=== PATIENT | female | born 1965 | race American Indian/Alaskan Native ===

== ENCOUNTER 2018-02-10 06:51 | Day surgery (SDC) | payer OTHER ==
[~2018-02-10 06:51] MED LIST: Dextrose 5%-0.45% NaCl 1,000 ML IV SCH; Midazolam 1 MG/ML 2 ML SDV ONE; Sodium Chloride 0.9% 10 ML Syringe FLUSH PRN; fentaNYL 100 MCG/2 ML SDV ONE
[2018-02-10] MEDS ORDERED: fentaNYL 100 MCG/2 ML SDV IV ONE ×3 (06:52→07:49)
[2018-02-10] MEDS ORDERED: Midazolam 1 MG/ML 2 ML SDV IV ONE ×3 (06:52→07:51)
--- NOTE | 2018-02-10 10:47 | OR ---
DATE: 02/10/2018 PROCEDURES: Esophagogastroduodenoscopy and multiple pinch biopsies. INSTRUMENT USED: GIF-H180 Olympus video panendoscope. PREMEDICATIONS: No oral topical anesthesia used. Fentanyl 100 mcg intravenous, Versed 2 mg intravenous. The procedure was done under pulse oximetry, BP recording, and classroom monitor. INDICATION: The patient with persistent multiple abdominal symptoms; iron- deficiency anemia, unexplained; and not responsive to medical measures, on high- dose PPI. DESCRIPTION OF PROCEDURE: Esophagogastroduodenoscopy is performed for detection of any active erosive lesions. Lemus esophagus and/or malignancy also under consideration. H. pylori status to be determined. Small bowel biopsies to be obtained for celiac disease if indicated. Endoscopic hemostasis therapy if needed. The scope was passed with ease. Adequate visualization of the esophagus was made from proximal to distal areas. No upper esophageal lesions identified. No distal esophageal stricture. No uphill or downhill esophageal varices. No Radha-Lizarraga tear. No evidence of erosive esophagitis by [place] criteria. No esophageal polyp or tumor mass identified. Sliding hiatal hernia was noted. No proximal gastric varices noted. Gastric fundus examination by retroflexion showed no polypoid lesions. No gastric ulcer, malignant mass, or vascular ectasia identified. Duodenal bulb showed no ulcer. Visualized second part of the duodenum was unremarkable. Multiple pinch biopsies, 4 in number, were taken from different areas of the second part of the duodenum; and tissues were obtained from the duodenal bulb at 9 o'clock and 12 o'clock positions and sent for any histopathologic evidence of celiac disease. Multiple pinch biopsies were taken from the gastric antrum and proximal body and sent for PyloriTek test for H. pylori and histopathology. No bleeding was noted from any of the visualized areas at the completion of examination. Photographs were taken of the duodenal bulb, gastric antrum, fundus, and distal esophagus. IMPRESSION: Sliding hiatal hernia. The patient tolerated the procedure well. [facility] /[id number]
--- NOTE | 2018-02-10 11:50 | LETTER ---
02/10/2018 Ramonita Cullen MD [facility] [address] [place] [address] RE: NATHALY STU PINZON : [address] Cullen: Ms. Stu Pinzon Bernardinoteo had esophagogastroduodenoscopy done this morning and she tolerated the procedure well. I herewith send a copy of the endoscopy note and photographs for your review. Thank you, Sincerely, [facility] /[id number]
== END 2018-02-10 10:03 | disposition home or self-care (01) ==
LOC: DL.ENDO 06:51
PROVIDERS: ATTEND Internal Medicine Gastroenterology
DX: R10.9 Unspecified abdominal pain (principal); D50.9 Iron deficiency anemia, unspecified; K44.9 Diaphragmatic hernia without obstruction or gangrene; E66.09 Other obesity due to excess calories; Z88.5 Allergy status to narcotic agent; Z91.14 Patient's other noncompliance with medication regimen
CPT/HCPCS: 43239; 81025; 87077; J2250; J3010; J7042

== ENCOUNTER 2018-02-13 05:51 | Day surgery (SDC) | payer OTHER ==
[2018-02-13] MEDS ORDERED: Dextrose 5%-0.45% NaCl 1,000 ML IV SCH (06:00)
[2018-02-13] MEDS ORDERED: Sodium Chloride 0.9% 10 ML Syringe FLUSH PRN (06:00)
[2018-02-13] MEDS ORDERED: fentaNYL 100 MCG/2 ML SDV ONE (06:12)
[2018-02-13] MEDS ORDERED: Midazolam 1 MG/ML 2 ML SDV ONE (06:12)
[2018-02-13] MEDS ORDERED: fentaNYL 100 MCG/2 ML SDV IV ONE ×4 (07:24→07:43)
[2018-02-13] MEDS ORDERED: Midazolam 1 MG/ML 2 ML SDV IV ONE ×6 (07:25→07:40)
--- NOTE | 2018-02-13 14:50 | OR ---
DATE: 02/13/2018 PROCEDURES: Colonoscopy, NBI, cold snare polypectomy, and multiple pinch biopsies. INSTRUMENT USED: PCF-H180 [place] Olympus video colonoscope. PREMEDICATIONS: Fentanyl 150 mcg intravenous, Versed 4 mg intravenous. Nasal O2 cannula. The procedure was done under pulse oximetry, BP recording, and light fixture servicer. INDICATION: The patient with unexplained iron-deficiency anemia. Colonoscopic examination is done for detection of any polypoid lesions and removal, endoscopic hemostasis therapy if needed. DESCRIPTION OF PROCEDURE: Initial rectal exam was unremarkable. Limited rigid anoscopic examination was normal. The colonoscope was passed with ease. Photographs were taken of the rectum showing benign, 3-mm sized polyp and also couple of large sessile polypoid folds. NBI views were obtained, numerous pinch biopsies were obtained from the sessile polypoid areas and sent for histopathology. Scattered diverticula were noted in the distal left colon along with some deformity. The scope was passed with ease up to the ileocecal area. Photographs were taken of the normal-appearing cecum identified by landmarks of appendiceal orifice and double-bulged ileocecal folds. No bleeding was noted from any of the visualized areas at the commencement of the examination. There was significant amount of fecal material that had to be aspirated clear. The bowel preparation was found to be adequate. No stricture, no vascular ectasia, no large isolated ulcerations seen. No evidence of diffuse inflammatory bowel disease in the form of friability, contact bleeding, or ulcerations. Probing the proximal sides of folds and flexures using adequate distention and clearing up the stool material, withdrawal of the scope was made. [id number] time over 6 minutes. No bleeding was noted from any of the visualized areas at the completion of the examination. IMPRESSION: Rectal polyps. The patient tolerated the procedure well. [facility] /[id number]
--- NOTE | 2018-02-14 07:03 | LETTER ---
02/13/[address] [facility] [address] [place] [address] RE: PELON NICHOLE STU ALBERTA : [address] Cullen: Ms. Stu Galaviz Pelon Nichole had colonoscopic examination done this morning and she tolerated the procedure well. I herewith send a copy of the endoscopy note and photographs for your review. Thank you. Sincerely, [facility] /[id number]
== END 2018-02-13 09:40 | disposition home or self-care (01) ==
LOC: DL.ENDO 05:51
PROVIDERS: ATTEND Internal Medicine Gastroenterology
DX: D50.9 Iron deficiency anemia, unspecified (principal); K62.1 Rectal polyp; K57.30 Diverticulosis of large intestine without perforation or abscess without bleeding; E66.09 Other obesity due to excess calories; Z80.0 Family history of malignant neoplasm of digestive organs; Z88.5 Allergy status to narcotic agent
CPT/HCPCS: 45380; J7042; J2250; J3010

== ENCOUNTER 2019-12-19 20:45 | Emergency (ER) | payer BC, OTHER ==
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
[2019-12-19] MEDS ORDERED: Iopamidol 612 MG/ML 100 ML Bottle IVPUSH ONE (21:33)
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
[2019-12-19 21:36] LABS: CHLORIDE,CL 102 mmol/L (98-107)
[2019-12-19 21:37] LABS: ANION GAP 22.6 mEq/L (7-13); SODIUM,NA 141 mmol/L (136-145)
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
== END 2019-12-19 22:05 ==
LOC: DL.ED 20:45 → MERGE 20:45 → DL.ED 22:05
DX: S20.311A Abrasion of right front wall of thorax, initial encounter (principal); S00.01XA Abrasion of scalp, initial encounter; M25.571 Pain in right ankle and joints of right foot; M54.2 Cervicalgia; F10.129 Alcohol abuse with intoxication, unspecified; R40.4 Transient alteration of awareness; I25.2 Old myocardial infarction; Y90.8 Blood alcohol level of 240 mg/100 ml or more; Z88.5 Allergy status to narcotic agent; V86.59XA Driver of other special all-terrain or other off-road motor vehicle injured in nontraffic accident, initial encounter
CPT/HCPCS: 36415; 70450; 71260; 72125; 72128; 72131; 74177; 80053; 80305; 80307; 81003; 82150; 82962; 83690; 85025; 85610; 86850; 86900; 86901; 94762; 99285; Q9967

== ENCOUNTER 2019-12-22 21:57 | Emergency (ER) | payer BC, OTHER ==
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
[2019-12-22] MEDS ORDERED: Acetaminophen/HYDROcodone 325-5 MG Tab PO ONE (23:29)
[2019-12-22] MEDS ORDERED: Metoclopramide 10 MG Tab PO ONE (23:30)
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
== END 2019-12-22 23:36 | disposition home or self-care (01) ==
LOC: DL.ED 21:57
DX: S06.0X0D Concussion without loss of consciousness, subsequent encounter (principal); K21.9 Gastro-esophageal reflux disease without esophagitis; E66.9 Obesity, unspecified; Z68.31 Body mass index [BMI] 31.0-31.9, adult; Z88.5 Allergy status to narcotic agent; Z79.899 Other long term (current) drug therapy; V86.99XD Unspecified occupant of other special all-terrain or other off-road motor vehicle injured in nontraffic accident, subsequent encounter
CPT/HCPCS: 70450; 99284; A9270

== ENCOUNTER 2020-05-17 00:17 | Emergency (ER) | payer BC, OTHER ==
[2020-05-17] MEDS ORDERED: Aspirin 81 MG Tab.Chew PO ONE (00:50)
--- NOTE | 2020-05-17 00:51 | EDM.PDOC ---
ED HPI GENERAL MEDICAL PROBLEM - General Chief Complaint: Chest Pain Stated Complaint: CHEST PAIN Time Seen by Provider: 05/17/20 00:25 Source of Information: Reports: Patient History Limitations: Reports: No Limitations - History of Present Illness INITIAL COMMENTS - FREE TEXT/NARRATIVE: c/o sudden onset left chest pain worse with deep breathing, sharp worsens with movement. No recent fever chills or cough. Remote hx GA and CVA. Hx some ETOH use admits couple beers tonight. No palpitations. No nausea or vomiting. Left Upper Chest Pain Score (Numeric/FACES): 10 - Related Data Allergies Allergy/AdvReac Type Severity Reaction Status Date / Time codeine Allergy Other Verified 05/17/20 00:30 lactose AdvReac Diarrhea Verified 05/17/20 00:30 MUSHROOMS Allergy Intermediate HIVES, Uncoded 05/17/20 00:30 SWELLING OF THROAT Home Meds: Home Meds Acetaminophen 325 mg PO DAILY 02/09/18 [History] Calcium Carbonate/Vitamin D3 [Calcium 600 + Vit D Tablet] 1 each PO DAILY 02/09/18 [History] Ibuprofen 200 - 800 mg PO ASDIRECTED 02/09/18 [History] Ranitidine [Zantac] 300 mg PO ASDIRECTED 02/09/18 [History] rOPINIRole [Requip] 1 mg PO BEDTIME 02/09/18 [History] Past Medical History - Past Health History Medical/Surgical History: Denies Medical/Surgical History HEENT History: Reports: Impaired Vision, Other (See Below) Other HEENT History: UPPER AND LOWER DENTURE PLATES Cardiovascular History: Reports: GA Respiratory History: Reports: None Gastrointestinal History: Reports: GERD, Other (See Below) Other Gastrointestinal History: "heartburn" per S chart Genitourinary History: Reports: None 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: Musculoskeletal History: Reports: Back Pain, Chronic Neurological History: Reports: CVA, Other (See Below) Other Neuro History: restless legs Psychiatric History: Reports: None Endocrine/Metabolic History: Reports: Obesity/BMI 30+ Hematologic History: Reports: Anemia, Iron Deficiency Immunologic History: Reports: None Oncologic (Cancer) History: Reports: None Dermatologic History: Reports: None - Infectious Disease History Infectious Disease History: Reports: None - Past Surgical History Head Surgeries/Procedures: Reports: None HEENT Surgical History: Reports: Oral Surgery Cardiovascular Surgical History: Reports: None Respiratory Surgical History: Reports: None GI Surgical History: Reports: EGD Female Surgical History: Reports: Section Endocrine Surgical History: Reports: None Neurological Surgical History: Reports: None Musculoskeletal Surgical History: Reports: None Oncologic Surgical History: Reports: None Dermatological Surgical History: Reports: None Social & Family History - Family History Family Medical History: No Pertinent Family History HEENT: Reports: None - Tobacco Use Tobacco Use Status *Q: Never Tobacco User Second Hand Smoke Exposure: No - Caffeine Use Caffeine Use: Reports: Coffee, Soda Other Caffeine Use: 4 cups coffee every AM - Recreational Drug Use Recreational Drug Use: No ED ROS GENERAL - Review of Systems Review Of Systems: Comprehensive ROS is negative, except as noted in HPI. ED EXAM, GENERAL - Physical Exam Exam: See Below Exam Limited By: No Limitations General Appearance: Alert, Anxious, Moderate Distress Eye Exam: Bilateral Eye: EOMI Ears: Normal External Exam, Hearing Grossly Normal Nose: Normal Inspection Neck: Normal Inspection Respiratory/Chest: No Respiratory Distress, Lungs Clear, Normal Breath Sounds. No: Chest Non-Tender (point tenderness mid clavicular 3rd ICS) Cardiovascular: Normal Peripheral Pulses, Regular Rate, Rhythm GI/Abdominal: Normal Bowel Sounds, Soft, Non-Tender Extremities: Normal Inspection Neurological: Alert, Oriented, Normal Cognition Psychiatric: Anxious Skin Exam: Warm, Dry, Intact Course - Vital Signs Last Recorded V/S: Last Vital Signs Temp 97.9 F 05/17/20 00:26 Pulse 66 05/17/20 00:26 Resp 24 H 05/17/20 00:26 BP 122/85 05/17/20 00:26 Pulse Ox 99 05/17/20 00:26 - Orders/Labs/Meds Orders: Active Orders 24 hr Category Date Time Status EKG Documentation Completion [RC] URGENT Care 05/17/20 00:37 Active EKG Documentation Completion [RC] URGENT Care 05/17/20 04:45 Active DRUG SCREEN URINE BIORAD [URCHEM] Stat Lab 05/17/20 01:02 Ordered UA RFX ЮЛИЯ AND CULT IF INDIC [URIN] Urgent Lab 05/17/20 01:02 Ordered Labs: Laboratory Tests 05/17/20 05/17/20 05/17/20 Range/Units 00:45 00:45 00:45 WBC 7.8 (5.0-10.0) 10^3/uL RBC 4.64 (4.2-5.4) 10^6/uL Hgb 12.3 D (12.0-16.0) g/dL Hct 37.3 (37.0-47.0) % MCV 80.4 (80-100) fL MCH 26.5 L (27.0-34.0) pg MCHC 33.0 (33.0-35.0) g/dL Plt Count 261 (150-450) 10^3/uL Neut % (Auto) 45.0 (42.2-75.2) % Lymph % (Auto) 36.0 (20.5-50.1) % [place] % (Auto) 10.0 H (2-8) % Eos % (Auto) 8.5 H (1.0-3.0) % Baso % (Auto) 0.5 (0.0-1.0) % PT 10.4 (9.0-12.0) SEC INR 1.1 (0.9-1.2) D-Dimer, Quantitative 409 H (0-400) ng/mL Sodium 135 L (136-145) mmol/L Potassium 3.6 (3.5-5.1) mmol/L Chloride 97 L (98-107) mmol/L Carbon Dioxide 20 L (21-32) mmol/L Anion Gap 21.6 H (7-13) mEq/L BUN 6 L (7-18) mg/dL Creatinine 0.63 (0.55-1.02) mg/dL Est Cr Clr Drug Dosing TNP Estimated GFR (MDRD) > 60 BUN/Creatinine Ratio 9.5 (No establ ref range) Glucose 85 (74-99) mg/dL Lactic Acid (0.4-2.0) mmol/L Calcium 9.5 (8.5-10.1) mg/dL Total Bilirubin 0.5 (0.2-1.0) mg/dL AST 96 H (15-37) U/L ALT 95 H (14-59) U/L Alkaline Phosphatase 111 (46-116) U/L Troponin I < 0.017 (0.000-0.056) ng/mL C-Reactive Protein 0.3 (0.0-0.9) mg/dL Total Protein 7.7 (6.4-8.2) g/dL Albumin 3.8 (3.4-5.0) g/dL Globulin 3.9 Albumin/Globulin Ratio 1.0 Ethyl Alcohol (0) mg/dL 05/17/20 05/17/20 05/17/20 Range/Units 00:45 00:45 04:45 WBC (5.0-10.0) 10^3/uL RBC (4.2-5.4) 10^6/uL Hgb (12.0-16.0) g/dL Hct (37.0-47.0) % MCV (80-100) fL MCH (27.0-34.0) pg MCHC (33.0-35.0) g/dL Plt Count (150-450) 10^3/uL Neut % (Auto) (42.2-75.2) % Lymph % (Auto) (20.5-50.1) % [place] % (Auto) (2-8) % Eos % (Auto) (1.0-3.0) % Baso % (Auto) (0.0-1.0) % PT (9.0-12.0) SEC INR (0.9-1.2) D-Dimer, Quantitative (0-400) ng/mL Sodium (136-145) mmol/L Potassium (3.5-5.1) mmol/L Chloride (98-107) mmol/L Carbon Dioxide (21-32) mmol/L Anion Gap (7-13) mEq/L BUN (7-18) mg/dL Creatinine (0.55-1.02) mg/dL Est Cr Clr Drug Dosing Estimated GFR (MDRD) BUN/Creatinine Ratio (No establ ref range) Glucose (74-99) mg/dL Lactic Acid 2.9 H* (0.4-2.0) mmol/L Calcium (8.5-10.1) mg/dL Total Bilirubin (0.2-1.0) mg/dL AST (15-37) U/L ALT (14-59) U/L Alkaline Phosphatase (46-116) U/L Troponin I < 0.017 (0.000-0.056) ng/mL C-Reactive Protein (0.0-0.9) mg/dL Total Protein (6.4-8.2) g/dL Albumin (3.4-5.0) g/dL Globulin Albumin/Globulin Ratio Ethyl Alcohol 138 (0) mg/dL Meds: Medications Discontinued Medications Generic Name Dose Route Start Last Admin Trade Name Preston PRN Reason Stop Dose Admin Aspirin 324 mg 05/17/20 00:50 05/17/20 01:03 Aspirin PO 05/17/20 00:51 324 mg ONETIME ONE Administration Ketorolac Tromethamine 30 mg 05/17/20 01:46 05/17/20 01:51 Toradol IVPUSH 05/17/20 01:47 30 mg ONETIME ONE Administration - Re-Assessments/Exams Free Text/Narrative Re-Assessment/Exam: 05/17/20 05:31 Pain improved , resting. Lesser pain reproducible with palpation. Departure - Departure Time of Disposition: 05:23 Disposition: Home, Self-Care 01 Condition: Good Clinical Impression: Non-cardiac chest pain, Alcohol intoxication Instructions: Nonspecific Chest Pain, Adult, [id number] Forms: ED Department Discharge Additional Instructions: light activity tylenol every 4 hours as needed for discomfort humidifier in room decrease alcohol use bland diet follow up clinic next week Sepsis Event Note (ED) - Evaluation Sepsis Screening Result: No Definite Risk - Focused Exam Vital Signs: Vital Signs Temp Pulse Resp BP Pulse Ox 05/17/20 00:26 97.9 F 66 24 H 122/85 99 - My Orders Last 24 Hours: My Active Orders 05/17/20 00:37 EKG Documentation Completion [RC] URGENT 05/17/20 01:02 DRUG SCREEN URINE BIORAD [URCHEM] Stat UA RFX ЮЛИЯ AND CULT IF INDIC [URIN] Urgent 05/17/20 04:45 EKG Documentation Completion [RC] URGENT - Assessment/Plan Last 24 Hours: My Active Orders 05/17/20 00:37 EKG Documentation Completion [RC] URGENT 05/17/20 01:02 DRUG SCREEN URINE BIORAD [URCHEM] Stat UA RFX ЮЛИЯ AND CULT IF INDIC [URIN] Urgent 05/17/20 04:45 EKG Documentation Completion [RC] URGENT
--- NOTE | 2020-05-17 01:15 | CR ---
PROCEDURE INFORMATION: Exam: XR Chest, 1 View Exam date and time: 05/17/2020 1:07 AM Age: 54 years old Clinical indication: Other: Chest pain TECHNIQUE: Imaging protocol: XR of the chest Views: 1 view. COMPARISON: No relevant prior studies available. FINDINGS: Lungs: Lung volumes are low causing crowding of pulmonary vascular and interstitial markings. Allowing for this, no definite pulmonary edema is present. There is no pneumonia. Mild peribronchial cuffing is noted which could be due to bronchitis. Pleural space: Unremarkable. No pleural effusion. No pneumothorax. Heart/Mediastinum: Heart size is within the normal range. Bones/joints: Unremarkable. IMPRESSION: 1. Low lung volumes with possible mild bronchitis. No pneumonia or pulmonary edema.
[2020-05-17 01:31] LABS: ANION GAP 21.6 mEq/L (7-13); CHLORIDE,CL 97 mmol/L (98-107); SODIUM,NA 135 mmol/L (136-145)
[2020-05-17] MEDS ORDERED: Ketorolac 30 MG/ML SDV IVPUSH ONE (01:46)
== END 2020-05-17 05:33 | disposition home or self-care (01) ==
LOC: DL.ED 00:17
DX: R07.89 Other chest pain (principal); F10.129 Alcohol abuse with intoxication, unspecified; I25.2 Old myocardial infarction; E66.9 Obesity, unspecified; Y90.6 Blood alcohol level of 120-199 mg/100 ml; Z91.011 Allergy to milk products; Z91.018 Allergy to other foods; Z88.5 Allergy status to narcotic agent
CPT/HCPCS: 36415; 71045; 80053; 80307; 83605; 84484; 85025; 85379; 85610; 86140; 93005; 96374; 99283; 99285; A9270; J1885

== ENCOUNTER 2020-09-07 20:08 | Emergency (ER) | payer BC, OTHER ==
[2020-09-07] MEDS ORDERED: Succinylcholine 200 MG/10 ML MDV IV ONE (20:09)
[2020-09-07] MEDS ORDERED: Midazolam 1 MG/ML 2 ML SDV ONE (20:29)
[2020-09-07] MEDS ORDERED: fentaNYL 100 MCG/2 ML SDV ONE (20:32)
[2020-09-07] MEDS ORDERED: fentaNYL 100 MCG/2 ML SDV IVPUSH ONE (20:42)
[2020-09-07] MEDS ORDERED: Midazolam 1 MG/ML 2 ML SDV IVPUSH ONE (20:42)
[2020-09-07] MEDS ORDERED: Naloxone 2 MG/2 ML Syringe IVPUSH ONE (20:42)
--- NOTE | 2020-09-07 20:45 | CR ---
PROCEDURE INFORMATION: Exam: XR Chest Exam date and time: 09/07/2020 8:40 PM Age: 54 years old Clinical indication: Other: Tube placement; Additional info: Unresponsive TECHNIQUE: Imaging protocol: XR of the chest Views: 1 view. COMPARISON: CR Chest 1V Frontal 05/17/2020 1:07 AM FINDINGS: Tubes, catheters and devices: An endotracheal tube is present, lying with its tip 5.9 cm above the anu. The tip of the enteric tube resides in the proximal stomach. Lungs: There is moderate nonspecific prominence of the pulmonary vasculature. There is nonspecific consolidation in the left lung base. Pleural spaces: There are no pleural effusions present. Heart/Mediastinum: The heart demonstrates moderate diffuse enlargement. Bones/joints: Unremarkable IMPRESSION: 1. Cardiomegaly and pulmonary vascular prominence consistent with volume overload or congestive heart failure. 2. The enteric tube tip resides in the proximal stomach. 3. Left basilar atelectasis or pneumonia.
[2020-09-07 20:48] LABS: ANION GAP 19.6 mEq/L (7-13); CHLORIDE,CL 99 mmol/L (98-107); SODIUM,NA 138 mmol/L (136-145)
--- NOTE | 2020-09-07 20:55 | EDM.PDOC ---
ED HPI GENERAL MEDICAL PROBLEM - General Chief Complaint: Neurological Problem Stated Complaint: AMBULANCE Time Seen by Provider: 09/07/20 20:40 Source of Information: Reports: EMS History Limitations: Reports: Altered Mental Status - History of Present Illness INITIAL COMMENTS - FREE TEXT/NARRATIVE: ED via [facility] Report patient walking home with family from supper and c/o feeling dizzy slumped to ground, tried to get up then unresponsive. Emesis x 1 [employer]. No report of trauma. No prior hx recent illness. No report of seizure activity. Narcan per EMS without change GCS 4 on arrival. - Related Data Allergies Allergy/AdvReac Type Severity Reaction Status Date / Time codeine Allergy Other Verified 05/17/20 00:30 lactose AdvReac Diarrhea Verified 05/17/20 00:30 MUSHROOMS Allergy Intermediate HIVES, Uncoded 05/17/20 00:30 SWELLING OF THROAT Home Meds: Home Meds Acetaminophen 325 mg PO DAILY 02/09/18 [History] Calcium Carbonate/Vitamin D3 [Calcium 600 + Vit D Tablet] 1 each PO DAILY 02/09/18 [History] Ibuprofen 200 - 800 mg PO ASDIRECTED 02/09/18 [History] Ranitidine [Zantac] 300 mg PO ASDIRECTED 02/09/18 [History] rOPINIRole [Requip] 1 mg PO BEDTIME 02/09/18 [History] Past Medical History - Past Health History Medical/Surgical History: Denies Medical/Surgical History HEENT History: Reports: Impaired Vision, Other (See Below) Other HEENT History: UPPER AND LOWER DENTURE PLATES Cardiovascular History: Reports: NC Respiratory History: Reports: None Gastrointestinal History: Reports: GERD, Other (See Below) Other Gastrointestinal History: "heartburn" per [facility] chart Genitourinary History: Reports: None 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: Musculoskeletal History: Reports: Back Pain, Chronic Neurological History: Reports: CVA, Seizure (has not been on medication since 2008), Other (See Below) Other Neuro History: restless legs Psychiatric History: Reports: None Endocrine/Metabolic History: Reports: Obesity/BMI 30+ Hematologic History: Reports: Anemia, Iron Deficiency Immunologic History: Reports: None Oncologic (Cancer) History: Reports: None Dermatologic History: Reports: None - Infectious Disease History Infectious Disease History: Reports: None - Past Surgical History Head Surgeries/Procedures: Reports: None HEENT Surgical History: Reports: Oral Surgery Cardiovascular Surgical History: Reports: None Respiratory Surgical History: Reports: None GI Surgical History: Reports: EGD Female Surgical History: Reports: Section Endocrine Surgical History: Reports: None Neurological Surgical History: Reports: None Musculoskeletal Surgical History: Reports: None Oncologic Surgical History: Reports: None Dermatological Surgical History: Reports: None Social & Family History - Family History Family Medical History: No Pertinent Family History HEENT: Reports: None - Caffeine Use Caffeine Use: Reports: Coffee, Soda Other Caffeine Use: 4 cups coffee every AM ED ROS GENERAL - Review of Systems Review Of Systems: Unable To Obtain Reason Not Obtained: unresponsive. No family available. - Physical Exam Exam: See Below Exam Limited By: No Limitations General Appearance: Obtunded Eye Exam: Bilateral Eye: EOMI, PERRL Ears: Normal External Exam, Normal Canal, Normal TMs Nose: Normal Inspection Throat/Mouth: Normal Inspection Head Exam: Atraumatic, Normocephalic Respiratory/Chest: No Respiratory Distress, Lungs Clear, Normal Breath Sounds GI/Abdominal: Normal Bowel Sounds Neuro Exam (Abbreviated): Unresponsive Extremities: No Pedal Edema. No: Joint Swelling Skin Exam: Warm, Dry, Intact. No: Ecchymosis Course - Orders/Labs/Meds Labs: Laboratory Tests 09/07/20 09/07/20 09/07/20 Range/Units 20:18 20:20 20:20 WBC (5.0-10.0) 10^3/uL RBC (4.2-5.4) 10^6/uL Hgb (12.0-16.0) g/dL Hct (37.0-47.0) % MCV (80-100) fL MCH (27.0-34.0) pg MCHC (33.0-35.0) g/dL Plt Count (150-450) 10^3/uL Neut % (Auto) (42.2-75.2) % Lymph % (Auto) (20.5-50.1) % [place] % (Auto) (2-8) % Eos % (Auto) (1.0-3.0) % Baso % (Auto) (0.0-1.0) % Sodium (136-145) mmol/L Potassium (3.5-5.1) mmol/L Chloride (98-107) mmol/L Carbon Dioxide (21-32) mmol/L Anion Gap (7-13) mEq/L BUN (7-18) mg/dL Creatinine (0.55-1.02) mg/dL Est Cr Clr Drug Dosing Estimated GFR (MDRD) BUN/Creatinine Ratio (No establ ref range) Glucose (74-99) mg/dL POC Glucose 109 H (70-105) mg/dl Calcium (8.5-10.1) mg/dL Total Bilirubin (0.2-1.0) mg/dL AST (15-37) U/L ALT (14-59) U/L Alkaline Phosphatase (46-116) U/L Troponin I (0.000-0.056) ng/mL Total Protein (6.4-8.2) g/dL Albumin (3.4-5.0) g/dL Globulin Albumin/Globulin Ratio Urine Color Yellow (YELLOW) Urine Appearance Clear (CLEAR) Urine pH 5.5 (5.0-9.0) Ur Specific [place] 1.010 (1.005-1.030) Urine Protein Negative (NEGATIVE) Urine Glucose (UA) Negative (NEGATIVE) Urine Ketones Negative (NEGATIVE) Urine Occult Blood Trace-intact H (NEGATIVE) Urine Nitrite Negative (NEGATIVE) Urine Bilirubin Negative (NEGATIVE) Urine Urobilinogen 0.2 (0.2-1.0) mg/dL Ur Leukocyte Esterase Negative (NEGATIVE) Urine RBC Not seen /HPF Urine WBC Not seen (0-5/HPF) /HPF Ur Epithelial Cells Rare (NOT SEEN) /HPF Urine Bacteria Few (0-FEW/HPF) /HPF Urine Opiates Screen Negative (NEGATIVE) Ur Oxycodone Screen Negative (NEGATIVE) Urine Methadone Screen Negative (NEGATIVE) Ur Barbiturates Screen Negative (NEGATIVE) U Tricyclic Antidepress Negative (NEGATIVE) Ur Phencyclidine Scrn Negative (NEGATIVE) Ur Amphetamine Screen Negative (NEGATIVE) U Methamphetamines Scrn Negative (NEGATIVE) Urine MDMA Screen Negative (NEGATIVE) U Benzodiazepines Scrn Negative (NEGATIVE) Urine Cocaine Screen Negative (NEGATIVE) U Marijuana (THC) Screen Negative (NEGATIVE) Ethyl Alcohol (0) mg/dL SARS-CoV-2 RNA (DIANE) (NEGATIVE) 09/07/20 09/07/20 09/07/20 Range/Units 20:20 20:20 21:05 WBC 7.5 (5.0-10.0) 10^3/uL RBC 4.76 (4.2-5.4) 10^6/uL Hgb 12.4 (12.0-16.0) g/dL Hct 37.9 (37.0-47.0) % MCV 79.6 L (80-100) fL MCH 26.1 L (27.0-34.0) pg MCHC 32.7 L (33.0-35.0) g/dL Plt Count 267 (150-450) 10^3/uL Neut % (Auto) 38.5 L (42.2-75.2) % Lymph % (Auto) 44.0 (20.5-50.1) % [place] % (Auto) 8.5 H (2-8) % Eos % (Auto) 8.3 H (1.0-3.0) % Baso % (Auto) 0.7 (0.0-1.0) % Sodium 138 (136-145) mmol/L Potassium 3.6 (3.5-5.1) mmol/L Chloride 99 (98-107) mmol/L Carbon Dioxide 23 (21-32) mmol/L Anion Gap 19.6 H (7-13) mEq/L BUN 3 L (7-18) mg/dL Creatinine 0.66 (0.55-1.02) mg/dL Est Cr Clr Drug Dosing TNP Estimated GFR (MDRD) > 60 BUN/Creatinine Ratio 4.5 (No establ ref range) Glucose 103 H (74-99) mg/dL POC Glucose (70-105) mg/dl Calcium 8.3 L (8.5-10.1) mg/dL Total Bilirubin 0.5 (0.2-1.0) mg/dL AST 77 H (15-37) U/L ALT 92 H (14-59) U/L Alkaline Phosphatase 123 H (46-116) U/L Troponin I < 0.017 (0.000-0.056) ng/mL Total Protein 6.9 (6.4-8.2) g/dL Albumin 3.7 (3.4-5.0) g/dL Globulin 3.2 Albumin/Globulin Ratio 1.2 Urine Color (YELLOW) Urine Appearance (CLEAR) Urine pH (5.0-9.0) Ur Specific [place] (1.005-1.030) Urine Protein (NEGATIVE) Urine Glucose (UA) (NEGATIVE) Urine Ketones (NEGATIVE) Urine Occult Blood (NEGATIVE) Urine Nitrite (NEGATIVE) Urine Bilirubin (NEGATIVE) Urine Urobilinogen (0.2-1.0) mg/dL Ur Leukocyte Esterase (NEGATIVE) Urine RBC /HPF Urine WBC (0-5/HPF) /HPF Ur Epithelial Cells (NOT SEEN) /HPF Urine Bacteria (0-FEW/HPF) /HPF Urine Opiates Screen (NEGATIVE) Ur Oxycodone Screen (NEGATIVE) Urine Methadone Screen (NEGATIVE) Ur Barbiturates Screen (NEGATIVE) U Tricyclic Antidepress (NEGATIVE) Ur Phencyclidine Scrn (NEGATIVE) Ur Amphetamine Screen (NEGATIVE) U Methamphetamines Scrn (NEGATIVE) Urine MDMA Screen (NEGATIVE) U Benzodiazepines Scrn (NEGATIVE) Urine Cocaine Screen (NEGATIVE) U Marijuana (THC) Screen (NEGATIVE) Ethyl Alcohol 172 (0) mg/dL SARS-CoV-2 RNA (DIANE) Negative (NEGATIVE) Meds: Medications Discontinued Medications Generic Name Dose Route Start Last Admin Trade Name Preston PRN Reason Stop Dose Admin Fentanyl Confirm 09/07/20 20:32 09/07/20 20:33 Sublimaze Administered 09/07/20 20:33 100 mcg Dose Administration 100 mcg .ROUTE .STK-MED ONE Fentanyl 100 mcg 09/07/20 20:42 09/07/20 20:43 Sublimaze IVPUSH 09/07/20 20:43 Not Given ONETIME ONE Midazolam HCl Confirm 09/07/20 20:29 09/07/20 20:31 Versed 1 Mg/Ml Administered 09/07/20 20:30 2 mg Dose Administration 2 mg .ROUTE .STK-MED ONE Midazolam HCl 2 mg 09/07/20 20:42 09/07/20 20:43 Versed 1 Mg/Ml IVPUSH 09/07/20 20:43 Not Given ONETIME ONE Naloxone HCl 2 mg 09/07/20 20:42 09/07/20 20:43 Narcan IVPUSH 09/07/20 20:43 2 mg ONETIME ONE Administration Naloxone HCl Confirm 09/08/20 00:42 09/08/20 03:52 Narcan Administered 09/08/20 00:43 Not Given Dose 2 mg .ROUTE .STK-MED ONE - Re-Assessments/Exams Free Text/Narrative Re-Assessment/Exam: 09/08/20 LENS BLANK GAUGER here, patient intubated. 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 Dr Chadwick Baer accepting patient. CT head [employer]> HR, BP stable. No seizure type activity or posturing in ED. No response to pain. Tx via [facility] [employer]. Daughter here prior to tx. relays patient hx seizure in past . on no medication, Last seizure approximately 10 years prior. . Departure - Departure Time of Disposition: 22:10 Disposition: DC/Tfer to Acute Hospital 02 Condition: Undetermined Clinical Impression: Hx of seizure disorder, History of CVA (cerebrovascular accident), Unresponsive, Alcohol intoxication - Discharge Information *PRESCRIPTION DRUG MONITORING PROGRAM REVIEWED*: No *COPY OF PRESCRIPTION DRUG MONITORING REPORT IN PATIENT RUSTAM: No Referrals: PCP,None [Primary Care Provider] - Forms: ED Department Discharge
--- NOTE | 2020-09-07 21:28 | CT ---
PROCEDURE INFORMATION: Exam: CT Head Without Contrast Exam date and time: 09/07/2020 9:11 PM Age: 54 years old Clinical indication: Other: Fall; Additional info: Altered mental TECHNIQUE: Imaging protocol: Computed tomography of the head without contrast. Radiation optimization: All CT scans at this facility use at least one of these dose optimization techniques: automated exposure control; mA and/or kV adjustment per patient size (includes targeted exams where dose is matched to clinical indication); or iterative reconstruction. Other technique: STROKE PROTOCOL was implemented. COMPARISON: CT Head wo Cont 12/22/2019 11:01 PM FINDINGS: Brain: There is no significant midline shift. There is a subtle area of low attenuation in the left occipital pole which is similar to the prior study from December 22, 2019 and may represent mild encephalomalacia. There is no evidence of acute hemorrhage within the brain parenchyma or the subarachnoid space. There is no evidence of an acute ischemic event. Cerebral ventricles: Unremarkable Bones/joints: The skull is normal. Paranasal sinuses: The sinuses are normal. Mastoid air cells: The mastoid sinuses are normal. Orbital cavity: The orbits are normal. Soft tissues: The extracranial soft tissues are normal. IMPRESSION: 1. No acute abnormality. 2. Old subtle area of encephalomalacia in the left occipital pole. ASSESSMENT: ASPECTS ([place] Stroke Program Early CT Score) is 10.
--- NOTE | 2020-09-07 21:44 | CT ---
PROCEDURE INFORMATION: Exam: CT Cervical Spine Without Contrast Exam date and time: 09/07/2020 9:11 PM Age: 54 years old Clinical indication: Other: Fall; Additional info: Altered mental TECHNIQUE: Imaging protocol: Computed tomography images of the cervical spine without contrast. Radiation optimization: All CT scans at this facility use at least one of these dose optimization techniques: automated exposure control; mA and/or kV adjustment per patient size (includes targeted exams where dose is matched to clinical indication); or iterative reconstruction. COMPARISON: No relevant prior studies available. FINDINGS: Tubes, catheters and devices: An endotracheal tube is positioned within the tracheal air column at the level of the superior margin of the aortic arch. An orogastric tube traverses the oral cavity into the esophagus. Bones/joints: There is no evidence of acute fracture. The vertebral body heights are maintained. The facet joints are normal. Discs/Spinal canal/Neural foramina: The disc spaces are maintained. There is no significant spinal canal narrowing. There is no evidence of foraminal stenosis. Lungs: There appear to be pleural effusions layering in the dependent portion of the lung apices. Soft tissues: The extraspinous soft tissues are normal. IMPRESSION: No acute bony abnormality.
[2020-09-08] MEDS ORDERED: Naloxone 2 MG/2 ML Syringe ONE (00:42)
== END 2020-09-07 22:10 ==
LOC: DL.ED 20:08
DX: G40.909 Epilepsy, unspecified, not intractable, without status epilepticus (principal); F10.129 Alcohol abuse with intoxication, unspecified; R40.1 Stupor; I25.2 Old myocardial infarction; K21.9 Gastro-esophageal reflux disease without esophagitis; E66.9 Obesity, unspecified; Z86.73 Personal history of transient ischemic attack (TIA), and cerebral infarction without residual deficits; Y90.6 Blood alcohol level of 120-199 mg/100 ml; Z88.5 Allergy status to narcotic agent; Z91.011 Allergy to milk products; Z91.018 Allergy to other foods; Z79.899 Other long term (current) drug therapy; Z20.822 Contact with and (suspected) exposure to COVID-19
CPT/HCPCS: 31500; 36415; 43752; 51702; 70450; 71045; 72125; 80053; 80305; 80307; 81001; 82962; 84484; 85025; 87635; 96374; 99285; J0330; J2250; J2310; J3010; 99283; U0002

== ENCOUNTER 2021-08-17 01:07 | Emergency (ER) | payer BC, OTHER ==
[2021-08-16 22:59] LABS: ANION GAP 15.9 mEq/L (7-13); CHLORIDE,CL 96 mmol/L (98-107); SODIUM,NA 131 mmol/L (136-145)
[2021-08-16 23:46] LABS: AMPHETAMINES,URINE NEGATIVE (NEGATIVE); BARBITURATES,URINE NEGATIVE (NEGATIVE); BENZODIAZEPINE,URINE NEGATIVE (NEGATIVE); MDMA (ECSTASY), URINE NEGATIVE (NEGATIVE); METHADONE,URINE NEGATIVE (NEGATIVE); METHAMPHETAMINES,URINE NEGATIVE (NEGATIVE); OPIATES,URINE NEGATIVE (NEGATIVE); OXYCODONE,URINE NEGATIVE (NEGATIVE); PHENCYCLIDINE,URINE NEGATIVE (NEGATIVE); TCA,URINE NEGATIVE (NEGATIVE)
[~2021-08-17 01:07] MED LIST changes: -Dextrose 5%-0.45% NaCl 1,000 ML IV SCH; +HYDROmorphone 0.5 MG/0.5 ML Syringe IVPUSH ONE; +Iopamidol 612 MG/ML 100 ML Bottle IVPUSH ONE; +LORazepam 2 MG/ML SDV IV ONE; +LORazepam 2 MG/ML SDV ONE; +Lactated Ringers 1,000 ML IV ONE; -Midazolam 1 MG/ML 2 ML SDV ONE; +Ondansetron 4 MG/2 ML SDV IV ONE; +Ondansetron 4 MG/2 ML SDV IVPUSH ONE; -fentaNYL 100 MCG/2 ML SDV ONE; +levETIRAcetam in NaCl (iso-os) 1,500 MG in Premix Bag 1 BAG IV ONE
[2021-08-17] MEDS ORDERED: Sodium Chloride 0.9% 1,000 ML IV ONE (01:27)
== END 2021-08-17 02:36 | disposition home or self-care (01) ==
LOC: DL.ED 01:07
DX: R56.9 Unspecified convulsions (principal); F10.129 Alcohol abuse with intoxication, unspecified; I25.2 Old myocardial infarction; E66.9 Obesity, unspecified; Z68.30 Body mass index [BMI] 30.0-30.9, adult; Z86.73 Personal history of transient ischemic attack (TIA), and cerebral infarction without residual deficits; Z88.5 Allergy status to narcotic agent; Z91.011 Allergy to milk products; Z91.018 Allergy to other foods; Y90.8 Blood alcohol level of 240 mg/100 ml or more
CPT/HCPCS: 36415; 70450; 71260; 72125; 74177; 80053; 80305; 80307; 81003; 83605; 85025; 86140; 96365; 96375; 99285; J1953; J2060; J2405; J7120; Q9967; 93010; 99284

== ENCOUNTER 2021-11-26 06:20 | Inpatient (IN) | payer BC, OTHER ==
[2021-11-26] MEDS ORDERED: Ondansetron 4 MG/2 ML SDV IVPUSH ONE (06:30)
[2021-11-26] MEDS ORDERED: Sodium Chloride 0.9% 1,000 ML IV ONE (06:30)
[2021-11-26] MEDS ORDERED: HYDROmorphone 0.5 MG/0.5 ML Syringe IVPUSH ONE ×2 (06:31→07:34)
[2021-11-26 07:25] LABS: ANION GAP 20.5 mEq/L (7-13); CHLORIDE,CL 104 mmol/L (98-107); SODIUM,NA 141 mmol/L (136-145)
[2021-11-26] MEDS ORDERED: Lactated Ringers 1,000 ML IV ONE (07:32)
[2021-11-26 07:47] LABS: AMPHETAMINES,URINE NEGATIVE (NEGATIVE); BARBITURATES,URINE NEGATIVE (NEGATIVE); BENZODIAZEPINE,URINE NEGATIVE (NEGATIVE); MDMA (ECSTASY), URINE NEGATIVE (NEGATIVE); METHADONE,URINE NEGATIVE (NEGATIVE); METHAMPHETAMINES,URINE NEGATIVE (NEGATIVE); OPIATES,URINE POSITIVE (NEGATIVE); OXYCODONE,URINE NEGATIVE (NEGATIVE); PHENCYCLIDINE,URINE NEGATIVE (NEGATIVE); TCA,URINE NEGATIVE (NEGATIVE)
[2021-11-26] MEDS ORDERED: Iopamidol 612 MG/ML 100 ML Bottle IVPUSH ONE (08:00)
[2021-11-26 08:02] LABS: CORONAVIRUS COVID-19 NAA NEGATIVE (NEGATIVE)
[2021-11-26] MEDS ORDERED: Ondansetron 4 MG/2 ML SDV IVPUSH PRN (10:09)
[2021-11-26] MEDS ORDERED: Docusate Sodium 100 MG Cap PO PRN (10:09)
[2021-11-26] MEDS ORDERED: HYDROmorphone 0.5 MG/0.5 ML Syringe IVPUSH PRN (10:09)
[2021-11-26] MEDS ORDERED: Acetaminophen 325 MG Tab PO PRN (10:09)
[2021-11-26] MEDS ORDERED: LORazepam 0.5 MG Tab PO PRN (10:20)
[2021-11-26] MEDS: Acetaminophen/HYDROcodone 325-5 MG Tab PO PRN ×3 (11:08→22:04)
[2021-11-26] MEDS: Enoxaparin 30 MG/0.3 ML Syringe SUBCUT SCH (11:08)
[2021-11-26] MEDS: ClonazePAM 0.5 MG Tab PO SCH ×2 (11:08→22:03)
[2021-11-26] MEDS: Sodium Chloride 0.9% 1,000 ML IV SCH (11:15)
[2021-11-27] MEDS: Sodium Chloride 0.9% 1,000 ML IV SCH (00:48)
[2021-11-27] MEDS: Acetaminophen/HYDROcodone 325-5 MG Tab PO PRN ×2 (05:34→13:34)
[2021-11-27 06:23] LABS: ANION GAP 12.5 mEq/L (7-13); CHLORIDE,CL 108 mmol/L (98-107); SODIUM,NA 143 mmol/L (136-145)
[2021-11-27] MEDS ORDERED: Triamcinolone Acetonide 0.1% Crm 15 GM Tube TOP PRN (08:30)
[2021-11-27] MEDS ORDERED: Lidocaine 5% 700 MG Patch TOP PRN (08:30)
[2021-11-27] MEDS ORDERED: Cholecalciferol (Vitamin D3) 25 MCG Tab PO SCH ×3 (09:00→09:30)
[2021-11-27] MEDS ORDERED: Ibuprofen 800 MG Tab PO PRN (09:02)
[2021-11-27] MEDS: ClonazePAM 0.5 MG Tab PO SCH (09:33)
[2021-11-27] MEDS: Enoxaparin 30 MG/0.3 ML Syringe SUBCUT SCH (09:34)
[2021-11-27] MEDS ORDERED: Gabapentin 300 MG Cap PO SCH (21:00)
[2021-11-27] MEDS ORDERED: traZODone 50 MG Tab PO SCH (21:00)
[2021-11-28] MEDS ORDERED: Pantoprazole 40 MG Tab.CR PO SCH (06:00)
[2021-11-28] MEDS ORDERED: Ascorbic Acid 500 MG Tab PO SCH (09:00)
== END 2021-11-27 16:51 | disposition home or self-care (01) | DRG 282 ==
LOC: DL.ED 06:20 → DL.MS 09:56
PROVIDERS: ADMIT Internal Medicine; ATTEND Internal Medicine
DX: K85.20 Alcohol induced acute pancreatitis without necrosis or infection (principal); H54.7 Unspecified visual loss; K21.9 Gastro-esophageal reflux disease without esophagitis; G89.29 Other chronic pain; M54.9 Dorsalgia, unspecified; E66.9 Obesity, unspecified; D50.9 Iron deficiency anemia, unspecified; F17.210 Nicotine dependence, cigarettes, uncomplicated; Z20.822 Contact with and (suspected) exposure to COVID-19; Z79.899 Other long term (current) drug therapy; Z88.5 Allergy status to narcotic agent; Z86.73 Personal history of transient ischemic attack (TIA), and cerebral infarction without residual deficits; Z86.19 Personal history of other infectious and parasitic diseases; Z91.011 Allergy to milk products; Z91.018 Allergy to other foods; I25.2 Old myocardial infarction; K80.20 Calculus of gallbladder without cholecystitis without obstruction; Z68.30 Body mass index [BMI] 30.0-30.9, adult
CPT/HCPCS: 0240U; 36415; 74177; 80053; 80305-QW; 81003; 82150; 83605; 83690; 85025; 85027; 96361; 96374; 96375; 96376; 99284; 99284-25; A9270-GY; J1170; J1650; J2405; J7030; J7120; Q9967

== ENCOUNTER 2022-03-08 23:26 | Emergency (ER) | payer BC, OTHER ==
[2022-03-08] MEDS ORDERED: Lactated Ringers 1,000 ML IV ONE (23:29)
[2022-03-08] MEDS ORDERED: Ondansetron 4 MG/2 ML SDV IVPUSH ONE (23:29)
[2022-03-09] MEDS ORDERED: HYDROmorphone 1 MG/ML Syringe IVPUSH ONE ×4 (00:04→02:43)
[2022-03-09 00:18] LABS: ACETAMINOPHEN 1 ug/mL (10-30 (Therapeutic)); ANION GAP 19.7 mEq/L (7-13); CHLORIDE,CL 102 mmol/L (98-107); ESTIMATED GFR 75 mL/min (>=60); SODIUM,NA 140 mmol/L (136-145)
[2022-03-09] MEDS ORDERED: Iopamidol 612 MG/ML 100 ML Bottle IVPUSH ONE (00:25)
[2022-03-09] MEDS ORDERED: Metoclopramide 10 MG/2 ML SDV IVPUSH ONE (01:46)
[2022-03-09] MEDS ORDERED: Ondansetron 4 MG/2 ML SDV IVPUSH ONE (02:43)
== END 2022-03-09 02:49 ==
LOC: DL.ED 23:26
DX: K81.0 Acute cholecystitis (principal); I25.2 Old myocardial infarction; K21.9 Gastro-esophageal reflux disease without esophagitis; F17.210 Nicotine dependence, cigarettes, uncomplicated; E66.9 Obesity, unspecified; Z86.73 Personal history of transient ischemic attack (TIA), and cerebral infarction without residual deficits; Z91.011 Allergy to milk products; Z88.5 Allergy status to narcotic agent; Z91.018 Allergy to other foods; Z79.899 Other long term (current) drug therapy; Z68.29 Body mass index [BMI] 29.0-29.9, adult
CPT/HCPCS: 36415; 74177; 80053; 80143; 80179; 80307; 82140; 82150; 83605; 83690; 83735; 84484; 85025; 93005; 93010; 96361; 96374; 96375; 96376; 99284; 99285; J1170; J2405; J2765; J7120; Q9967

== ENCOUNTER 2023-06-14 12:20 | Emergency (ER) | payer BC, OTHER ==
[2023-06-14] MEDS ORDERED: Ondansetron 4 MG/2 ML SDV IV ONE (12:53)
[2023-06-14] MEDS ORDERED: Ketorolac 30 MG/ML SDV IVPUSH ONE (12:54)
== END 2023-06-14 13:40 | disposition home or self-care (01) ==
LOC: DL.ED 12:20
DX: S06.0X0A Concussion without loss of consciousness, initial encounter (principal); S83.92XA Sprain of unspecified site of left knee, initial encounter; S70.01XA Contusion of right hip, initial encounter; S30.0XXA Contusion of lower back and pelvis, initial encounter; M54.6 Pain in thoracic spine; K21.9 Gastro-esophageal reflux disease without esophagitis; Z91.018 Allergy to other foods; Z88.5 Allergy status to narcotic agent; Z79.899 Other long term (current) drug therapy; Z86.73 Personal history of transient ischemic attack (TIA), and cerebral infarction without residual deficits; E66.9 Obesity, unspecified; W18.40XA Slipping, tripping and stumbling without falling, unspecified, initial encounter; Y92.009 Unspecified place in unspecified non-institutional (private) residence as the place of occurrence of the external cause
CPT/HCPCS: 70450; 72125; 72128; 72131; 73562-LT; 96374; 96375; 99284; 99284-25; J1885; J2405

== ENCOUNTER 2025-06-04 13:47 | Emergency (ER) | payer BC, OTHER ==
[2025-06-04 14:05] LABS: BASOPHILS PERCENT AUTO 0.5 % (0.0-1.0); EOSINOPHILS PERCENT AUTO 3.0 % (1.0-3.0); LYMPHOCYTES PERCENT AUTO 19.5 % (20.5-50.1); MONOCYTES PERCENT AUTO 6.7 % (2-8); NEUTROPHILS PERCENT AUTO 70.3 % (42.2-75.2); PLATELET COUNT,PLT 443 10^3/uL (150-450); RED BLOOD CELL COUNT 4.15 10^6/uL (4.2-5.4); WHITE BLOOD CELL COUNT,WBC 8.0 10^3/uL (5.0-10.0)
[2025-06-04] MEDS: diphenhydrAMINE 50 MG/ML SDV IV ONE (14:24)
[2025-06-04 14:28] LABS: A/G RATIO 0.9; ALANINE AMINOTRANSFERASE,ALT 9 U/L (14-59); ASPARTATE AMNIOTRANSFERASE,AST 11 U/L (15-37); BILIRUBIN TOTAL 0.5 mg/dL (0.2-1.0); BLOOD UREA NITROGEN,BUN 10 mg/dL (7-18); CARBON DIOXIDE,CO2 25 mmol/L (21-32); CHLORIDE,CL 101 mmol/L (98-107); CREATININE 1.38 mg/dL (0.55-1.02); EST CRCL DRUG DOSING (CG) 48.64 mL/min; ESTIMATED GFR 45 mL/min (>=60); GLUCOSE RANDOM 100 mg/dL (70-99); POTASSIUM,K 3.2 mmol/L (3.5-5.1); PROTEIN TOTAL,TP 7.6 g/dL (6.4-8.2); SODIUM,NA 139 mmol/L (136-145)
[2025-06-04] MEDS: Ondansetron 4 MG/2 ML SDV IVPUSH ONE (14:28)
[2025-06-04] MEDS: Ondansetron 4 MG/2 ML SDV ONE (14:32)
[2025-06-04] MEDS: Potassium Chloride 10 MEQ Tab.ER PO ONE (14:54)
== END 2025-06-04 16:20 | disposition home or self-care (01) ==
LOC: DL.ED 13:47
DX: R07.89 Other chest pain (principal); I25.2 Old myocardial infarction; K21.9 Gastro-esophageal reflux disease without esophagitis; Z86.73 Personal history of transient ischemic attack (TIA), and cerebral infarction without residual deficits; Z88.8 Allergy status to other drugs, medicaments and biological substances; Z91.018 Allergy to other foods; Z88.5 Allergy status to narcotic agent; Z79.899 Other long term (current) drug therapy; Z91.0110 Allergy to milk products, unspecified
CPT/HCPCS: 36415; 71045; 80053; 83735; 83880; 84484; 85025; 85379; 86140; 93005; 93010; 96374; 96375; 99284; 99285; A9270; J1200; J2405